=== PATIENT | female | born 1980 | race Caucasian/White ===

== ENCOUNTER 2022-10-14 07:58 | Day surgery (SDC) | payer BC ==
[2022-10-10 10:54] VITALS: BMI 29.2
[2022-10-14] MEDS ORDERED: Vancomycin 1 GM VIAL ONE (08:54)
[2022-10-14] MEDS ORDERED: Lidocaine 1% MPF 2 ML VIAL ONE (09:02)
[2022-10-14] MEDS ORDERED: Levofloxacin 500 mg/D5W 100 ml Premix Bag ONE (09:43)
[2022-10-14 09:45] LABS: #Eosinphils 0.2 thou/uL (0.0-0.7); #Lymphocytes 1.9 thou/uL (1.20-3.40); #Monocytes 0.5 thou/uL (0.11-0.59); #Neutrophils 2.9 thou/uL (1.40-6.50); %Basophils 0.5 % (0.0-1.0); %Eosinophils 2.9 % (0.0-10.0); %Lymphocytes 34.9 % (21.0-51.0); %Monocytes 8.3 % (0.0-10.0); %Neutrophils 53.5 % (42.0-75.0); Hemoglobin 13.4 g/dL (12.0-16.0); Mean Corpuscular HGB CONC 34.4 g/dL (32.0-36.0); Mean Corpuscular Hemoglobin 35.2 pg (27.0-31.0); Mean Platelet Volume 7.8 fL (7.4-10.4); Platelet Count 206 10x3/uL (130-400); RBC Distribution Width 10.1 % (11.5-14.5); Red Blood Cell (RBC) Count 3.81 mill/uL (4.20-5.40); White Blood Cell (WBC) Count 5.4 10x3/uL (4.8-10.8)
[2022-10-14] MEDS ORDERED: Scopolamine 1.5 mg/72 hour Patch ONE (09:57)
[2022-10-14] MEDS ORDERED: Famotidine/PF 20 mg/2ml Vial ONE (09:57)
[2022-10-14 10:04] LABS: Anion Gap 10 mmol/L (10-20); BUN (Urea Nitrogen) 10 mg/dL (7.0-18.7); Calc. Creatinine Clearance 114 mL/min (70-130); Calcium 9.3 mg/dL (7.8-10.44); Carbon Dioxide 27 mmol/L (22-29); Chloride 106 mmol/L (98-107); Estimated GFR 103; Glucose 85 mg/dL (70-105); Potassium 4.1 mmol/L (3.5-5.1); Sodium 139 mmol/L (136-145)
[2022-10-14] MEDS ORDERED: Midazolam HCl 2 mg/2 ml Vial ONE (10:56)
[2022-10-14] MEDS ORDERED: Clindamycin/D5W 900 mg/50 ml Premix Bag ONE (11:11)
[2022-10-14] MEDS ORDERED: fentaNYL PF 100 MCG/2 ML SYRINGE ONE (11:19)
[2022-10-14] MEDS ORDERED: HYDROmorphone 0.5 MG/0.5 ML SYRINGE ONE ×4 (11:19→13:12)
[2022-10-14] MEDS ORDERED: PROPOFOL 200 MG/20 ML VIAL ONE (11:23)
[2022-10-14] MEDS ORDERED: Dexamethasone 20 MG/5 ML VIAL ONE (11:23)
[2022-10-14] MEDS ORDERED: GLYCOPYRROLATE/PF 0.2 MG/ML VIAL ONE (11:23)
[2022-10-14] MEDS ORDERED: ePHEDrine Sulfate 50 MG/10 ML VIAL ONE (11:23)
[2022-10-14] MEDS ORDERED: Rocuronium Bromide 10 MG/ML (10ML VIAL) ONE (11:23)
[2022-10-14] MEDS ORDERED: Ketorolac Tromethamine 30 MG/ML VIAL ONE (11:23)
[2022-10-14] MEDS ORDERED: NEOSTIGMINE 3 MG/3 ML SYR 3 MG/3 ML SYRINGE ONE (11:23)
[2022-10-14] MEDS ORDERED: Lidocaine 1% PF 5 ML VIAL ONE (11:23)
[2022-10-14] MEDS ORDERED: Ondansetron PF 4 MG/2 ML Vial ONE ×3 (11:23→14:27)
[2022-10-14] MEDS ORDERED: Promethazine HCl 25 MG/ML VIAL ONE (12:19)
[2022-10-14] MEDS ORDERED: fentaNYL 50 mcg/mL 1 mL Vial ONE (13:45)
== END 2022-10-14 15:40 | disposition home or self-care (01) ==
LOC: SDC 07:58
PROVIDERS: ATTEND Neurological Surgery
PROC: 0SG3071 Fusion of Lumbosacral Joint with Autologous Tissue Substitute, Posterior Approach, Posterior Column, Open Approach (ICD-10-PCS; principal; 2022-10-14)
DX: M43.17 Spondylolisthesis, lumbosacral region (principal); Z88.1 Allergy status to other antibiotic agents; Z79.620 Long term (current) use of immunosuppressive biologic; Z79.899 Other long term (current) drug therapy
CPT/HCPCS: 80048; 85025; 93005; 93010; C1713; C1768; C1776; J1100; J1170; J1885; J1956; J2250; J2405; J2550; J2704; J3010; J3370; J3490; S0028

== ENCOUNTER 2022-10-30 13:09 | Outpatient (CLI) | payer BC | END 2022-10-30 13:10 | disposition home or self-care (01) | LOC: TBSIIMAG 13:09 | PROVIDERS: ATTEND Neurological Surgery | DX: M43.16 Spondylolisthesis, lumbar region (principal); M47.816 Spondylosis without myelopathy or radiculopathy, lumbar region; Z98.1 Arthrodesis status | CPT/HCPCS: 72100 ==